=== PATIENT | male | born 1985 | race Caucasian/White ===

== ENCOUNTER 2019-10-31 10:19 | Inpatient (IN) ==
[2019-10-31] MEDS ORDERED: TYLENOL PO PRN (12:29)
[2019-10-31] MEDS ORDERED: SENOKOT PO PRN (12:29)
[2019-10-31] MEDS ORDERED: SINEMET 25/100 PO PRN (12:29)
[2019-10-31] MEDS ORDERED: PHENOBARBITAL IV PRN (12:29)
[2019-10-31] MEDS ORDERED: MAALOX PLUS LIQUID PO PRN (12:29)
[2019-10-31] MEDS ORDERED: IMODIUM PO PRN (12:29)
[2019-10-31] MEDS ORDERED: MOTRIN PO PRN (12:29)
[2019-10-31] MEDS ORDERED: BENTYL PO PRN (12:29)
[2019-10-31] MEDS ORDERED: LIBRIUM PO PRN (12:29)
[2019-10-31] MEDS ORDERED: ATARAX PO PRN (12:29)
[2019-10-31] MEDS ORDERED: ZOFRAN IV PRN (12:29)
[2019-10-31] MEDS ORDERED: ROBAXIN PO PRN (12:29)
[2019-10-31] MEDS ORDERED: DESYREL PO PRN (12:29)
[2019-10-31] MEDS ORDERED: NICODERM PATCH TD PRN (12:29)
[2019-10-31] MEDS ORDERED: DULCOLAX PR PRN (12:29)
[2019-10-31] MEDS ORDERED: TUBERSOL ID ONE (12:29)
[2019-10-31] MEDS ORDERED: D5W 1,000 ML IV PRN (12:29)
[2019-10-31 13:05] LABS: URINE SOURCE VOIDED
[2019-10-31 13:09] LABS: BILIRUBIN URINE NEGATIVE (NEGATIVE); BLOOD URINE NEGATIVE (NEGATIVE); COLOR STRAW; GLUCOSE URINE NEGATIVE (NEGATIVE); KETONE URINE NEGATIVE (NEGATIVE); LEUKOCYTES URINE NEGATIVE (NEGATIVE); NITRITE URINE NEGATIVE (NEGATIVE); PROTEIN URINE NEGATIVE (NEGATIVE); SP GRAVITY URINE 1.013; TURBIDITY URINE CLEAR (CLEAR); UROBILINOGEN URINE NORMAL (NORMAL)
[2019-10-31 13:10] LABS: UR EPITHELIAL CELLS <10 /HPF (<10); URINE BACTERIA NEGATIVE /HPF; URINE RBC <10 /HPF (<10); URINE WBC <10 /HPF (<10)
[2019-10-31 13:16] LABS: HEMATOCRIT 42.1 % (42.0-52.0); HEMOGLOBIN 13.9 g/dL (14.0-18.0); MCH 27.7 PG (27-31); MCV 83.9 FL (81-99); MPV 10.4 FL (7.4-10.4); RBC 5.02 XMIL (4.7-6.1); RDW 13.2 % (11.5-14.5); WBC 13.4 X1000 (4.8-10.8)
[2019-10-31 13:17] LABS: UR AMPHETAMINES QUAL NONE DETECTED (NONE DETECT); UR BARBITUATES QUAL NONE DETECTED (NONE DETECT); UR BENZODIAZEPIN QUAL NONE DETECTED (NONE DETECT); UR CANNABINOIDS QUAL NONE DETECTED (NONE DETECT); UR COCAINE QUAL NONE DETECTED (NONE DETECT); UR METHADONE QUAL NONE DETECTED (NONE DETECT); UR METHAMPHETAMINE QUAL NONE DETECTED (NONE DETECT); UR OPIATES QUAL NONE DETECTED (NONE DETECT); UR OXYCODONE QUAL NONE DETECTED (NONE DETECT); UR PCP QUAL NONE DETECTED (NONE DETECT); UR PROPOXYPHENE QUAL NONE DETECTED (NONE DETECT); UR TCA QUAL NONE DETECTED (NONE DETECT)
[2019-10-31 13:31] LABS: INR 1.02; PROTIME 13.9 Seconds (11.0-16.0)
[2019-10-31 13:33] LABS: AMYLASE 45 U/L (20-200); LIPASE 24 U/L (13-60)
[2019-10-31 13:35] LABS: AGAP 12; ALBUMIN 4.3 g/dL (3.5-5.0); ALKALINE PHOSPHATASE 67 U/L (32-122); BUN 18 mg/dL (8-22); CALCIUM 8.9 mg/dL (8.8-10.2); CHLORIDE 100 mmol/L (98-107); COSMO 276; CREATININE 0.7 mg/dL (0.7-1.2); ESTIMATED GFR > 60; GLUCOSE 104 mg/dL (70-104); GOT 10 U/L (10-34); GPT 11 U/L (10-44); SODIUM 137 mmol/L (136-145); TCO2 26 mmol/L (25-35); TOTAL BILIRUBIN < 0.15 mg/dL (0.20-1.00); TOTAL PROTEIN 7.1 g/dL (6.3-8.3)
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
[2019-10-31] MEDS: VITAMIN B-1 PO SCH (14:54)
[2019-10-31] MEDS: ZOFRAN ODT PO PRN (14:54)
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
[2019-10-31] MEDS: SUBOXONE 2 MG/0.5 MG FILM SL SCH (18:25)
[2019-10-31] MEDS: SEROQUEL PO PRN (22:19)
[2019-11-01] MEDS: SUBOXONE 2 MG/0.5 MG FILM SL SCH ×2 (05:45→18:09)
[2019-11-01] MEDS: PROTONIX PO SCH ×2 (05:45→08:00)
[2019-11-01] MEDS: VITAMIN B-1 PO SCH (08:28)
[2019-11-01] MEDS: ZOFRAN ODT PO PRN (08:28)
[2019-11-01] MEDS: FOLIC ACID PO SCH (08:28)
[2019-11-01] MEDS: THERA M PLUS PO SCH (08:28)
--- NOTE | 2019-11-01 19:32 | PROGRESS NOTE ---
DATE: 11/01/2019 SUBJECTIVE: The patient notes overall he is feeling a lot better. Denies any fevers or chills. Denies cough or congestion. Denies any dysuria, frequency or urgency. OBJECTIVE: Vital signs reviewed. He is afebrile. Blood pressures are stable.HEENT: Normocephalic. Neck supple. Cardiovascular: Regular rate. Chest clear. Abdomen soft. Extremities: Moves all extremities. Neurologic: No focal neurological changes. Skin: Warm, dry. No rashes. ASSESSMENT: 1. Nausea and vomiting. 2. Abdominal pain. 3. Myalgias. 4. Paresthesias. 5. Paroxysmal sweating. 6. Opiate abuse, withdrawal and stabilization. PLAN: We are going to continue the patient in the hospital. Continue to follow. Further orders as needed. cc: Vito Ayala MD
[2019-11-01] MEDS: SEROQUEL PO PRN (21:07)
[2019-11-02] MEDS: SUBOXONE 2 MG/0.5 MG FILM SL SCH (06:17)
[2019-11-02] MEDS: PROTONIX PO SCH (06:17)
[2019-11-02 08:15] VITALS: BP 144/89
[2019-11-02] MEDS ORDERED: SUBOXONE 2 MG/0.5 MG FILM SL ONE (08:15)
[2019-11-02] MEDS: VITAMIN B-1 PO SCH (08:46)
[2019-11-02] MEDS: FOLIC ACID PO SCH (08:46)
[2019-11-02] MEDS: THERA M PLUS PO SCH (08:46)
[2019-11-02] MEDS ORDERED: SUBOXONE 8 MG/2 MG FILM SL SCH (21:00)
--- NOTE | 2019-11-02 22:32 | DISCHARGE SUMMARY ---
ADMISSION DATE: 10/31/2019 DISCHARGE DATE: 11/02/2019 DISCHARGE DIAGNOSES: 1. Nausea and vomiting. 2. Abdominal pain. 3. Myalgias. 4. Paresthesias. 5. Paroxysmal sweating. 6. Opiate abuse, withdrawal and stabilization. CONSULTATIONS: None. PROCEDURES: None. BRIEF HOSPITAL COURSE: The patient is a 34-year-old male who presented to [facility] program secondary to nausea, vomiting, abdominal pain, myalgias and paresthesias. Notes that he has been using and abusing opiates. He was placed on Suboxone. Thankfully, he had an uneventful hospital course. On discharge, he is awake and alert. He is in no distress. DISPOSITION: Patient will be discharged home. He is tolerating Suboxone well. We did increase to 8/. We will continue this twice daily. He will follow up outpatient with treatment facility of choice. Discussed with patient greater than 30 minutes that he needs to avoid all persons, places and situations which he has been using and abusing in the past. He needs outpatient life counseling as well as drug counseling. cc: Vito Ayala MD
== END 2019-11-02 17:09 | disposition home or self-care (01) | DRG 897 ==
LOC: DIRADM 10:59 → P.MEDSURG 11:46
PROVIDERS: ADMIT Family Medicine; ATTEND Family Medicine